=== PATIENT | male | born 1960 | race American Indian/Alaskan Native ===

== ENCOUNTER 2017-01-25 08:50 | Outpatient (CLI) | payer OTHER ==
[2017-01-25] MEDS ORDERED: PROVENTIL IH ONE (09:46)
== END 2017-01-25 08:51 | disposition home or self-care (01) ==
LOC: PF 08:50
PROVIDERS: ATTEND Internal Medicine
DX: I10 Essential (primary) hypertension (principal); J98.4 Other disorders of lung; M19.90 Unspecified osteoarthritis, unspecified site; R05 Cough; R06.2 Wheezing; R06.00 Dyspnea, unspecified
CPT/HCPCS: 94060; 94640